=== PATIENT | female | born 1955 ===

== ENCOUNTER 2020-09-28 07:30 | Inpatient (IN) | payer OTHER ==
[~2020-09-28] VITALS: Ht 160 cm; Wt 69.4 kg
[2020-09-28] MEDS ORDERED: METFORMIN HCL850 M1 PO (08:44)
[2020-09-28] MEDS ORDERED: HUMULIN 70100 UNIT/2 (08:44)
[2020-09-28] MEDS ORDERED: GLIPIZIDE10 MG PO (08:45)
[2020-09-28] MEDS ORDERED: PAXIL20 MG PO (08:45)
[2020-09-28] MEDS ORDERED: FOSAMAX70 MG PO (08:46)
[2020-09-28] MEDS ORDERED: COZAAR100 MG PO (08:46)
[2020-09-28] MEDS ORDERED: NEURONTIN800 MG PO (08:46)
[2020-09-28] MEDS ORDERED: OMEPRAZOLE20 MG PO (08:47)
[2020-10-05] MEDS ORDERED: CELECOXIB200 MG (10:46)
[2020-10-05] MEDS ORDERED: TIZANIDINE HCL4 MG (10:46)
[2020-10-05] MEDS ORDERED: CETIRIZINE HCL10 MG (10:46)
[2020-10-05] MEDS ORDERED: ROSUVASTATIN CA20 MG (10:47)
[2020-10-05] MEDS ORDERED: CYCLOBENZAPRINE10 MG (10:47)
[2020-10-07] MEDS ORDERED: PERCOCET 5-3251 EACH PO (11:13)
[2020-10-07] MEDS ORDERED: ELIQUIS2.5 MG PO (11:13)
[2020-10-07] MEDS ORDERED: DUI500 PO (11:13)
== END 2020-10-07 15:02 | DRG 470 ==
LOC: SURG 10-05 06:20 → O/R 10-05 06:20 → SURH 10-05 07:00 → SURG 10-05 14:04
PROVIDERS: ADMIT Orthopaedic Surgery; ATTEND Orthopaedic Surgery
PROC: 0SRC0J9 Replacement of Right Knee Joint with Synthetic Substitute, Cemented, Open Approach (ICD-10-PCS; principal; 2020-10-05 07:00)
DX: M17.11 Unilateral primary osteoarthritis, right knee (principal); D62 Acute posthemorrhagic anemia; I10 Essential (primary) hypertension; E11.9 Type 2 diabetes mellitus without complications; Z79.84 Long term (current) use of oral hypoglycemic drugs

== ENCOUNTER 2021-01-18 05:45 | Day surgery (SDC) | payer OTHER ==
[~2021-01-18 05:45] MED LIST: ALENDRONATE SOD70 MG PO; CELECOXIB200 MG; CETIRIZINE HCL10 MG; COZAAR100 MG PO; CYCLOBENZAPRINE10 MG; DUI500 PO; ELIQUIS2.5 MG PO; FOSAMAX70 MG PO; GLIPIZIDE10 MG PO; HUMULIN 70100 UNIT/2; METFORM PO; METFORMIN HCL850 M1 PO; NEURONTIN800 MG PO; OMEPRAZOLE20 MG PO; PAXIL20 MG PO; PERCOCET 5-3251 EACH PO; ROSUVASTATIN CA20 MG; TIZANIDINE HCL4 MG; ZYRTEC10 MG PO
[2021-01-18] MEDS ORDERED: PERCOCET 5-3251 EACH PO ×2 (10:43→11:32)
[2021-01-18] MEDS ORDERED: ALEVE220 M1 PO (10:43)
[2021-01-18] MEDS ORDERED: DUI500 PO ×2 (10:43→11:32)
== END 2021-01-18 15:35 | disposition home or self-care (01) ==
LOC: CIR.AMB 05:45
PROVIDERS: ATTEND Orthopaedic Surgery
DX: M24.561 Contracture, right knee (principal); M25.461 Effusion, right knee; M24.661 Ankylosis, right knee; Z20.822 Contact with and (suspected) exposure to COVID-19

== ENCOUNTER 2023-08-01 07:10 | Outpatient (CLI) | payer OTHER ==
[~2023-08-01 07:10] MED LIST changes: +ALEVE220 M1 PO
== END 2023-08-01 07:16 | disposition home or self-care (01) ==
LOC: RX STUDY 07:10
PROVIDERS: ATTEND Internal Medicine Gastroenterology
DX: R13.14 Dysphagia, pharyngoesophageal phase (principal)